=== PATIENT | male | born 1930 | race Two or more races ===

== ENCOUNTER 2017-08-07 01:44 | Inpatient (IN) | payer OTHER ==
[2017-08-07] VITALS (21 sets, daily range): BP systolic 103–139; BP diastolic 53–68; PULSE 100–114; RESP 16–21; TEMP 99.9; Ht 177.8 cm; Wt 100.3 kg
[~2017-08-07] VITALS: Ht 177.8 cm; Wt 100.3 kg
[2017-08-07] MEDS ORDERED: SOD CHLORIDE 0.9% 1,000 ML IV STA (02:09)
[2017-08-07] MEDS ORDERED: morphine 4 MG/ML VIAL IV STA (02:09)
[2017-08-07] MEDS ORDERED: ONDANSETRON 4 MG INJ IV STA (02:09)
--- NOTE | 2017-08-07 02:46 | ERD ---
ER Documentation Chief Complaint Chief Complaint RLQ AP radiates to midline x 2 days, +constipation, + nausea HPI 86-year-old man complains of abdominal pain beginning yesterday, he states the pain began in the mid abdomen and radiated down to the right lower quadrant and is now on both sides of the lower abdomen. He has had multiple episodes of nausea and vomiting, states his emesis is clear nonbloody nonbilious. He has anorexia and tactile fevers. Last meal was around 8 PM about 5-6 hours prior to arrival. Patient denies chest pain or shortness of breath, no headache or blurry vision, no hematuria, no complaints of diarrhea. Patient denies history of abdominal surgery. ROS All systems reviewed and are negative except as per history of present illness. Allergies Allergies: Coded Allergies: Sulfa (Sulfonamide Antibiotics) (Verified Allergy, Unknown, 08/07/17) PMhx/Soc Hypertension, diabetes mellitus, prior NV, CAD, pacemaker History of Surgery: Yes (pacemaker, bladder CA growth removed) Anesthesia Reaction: No Hx Neurological Disorder: No Hx Respiratory Disorders: No Hx Cardiac Disorders: Yes (pacemaker, HTN) Hx Psychiatric Problems: No Hx Miscellaneous Medical Probl: Yes (DM) Hx Alcohol Use: Yes (very little) Hx Substance Use: No Hx Tobacco Use: No Smoking Status: Never smoker FmHx Family History: No diabetes Physical Exam Vitals Vital Signs Date Time Temp Pulse Resp B/P Pulse Ox O2 Delivery O2 Flow Rate FiO2 08/07/17 02:29 100.1 85 22 167/92 95 Room Air 08/07/17 02:02 99.6 84 20 199/85 95 Physical Exam GENERAL: Well-developed, well-nourished, well-hydrated, in no apparent distress , looks nontoxic in appearance, afebrile HEENT: Moist mucous membranes, pink conjunctiva, no cervical spine tenderness or step-off deformities, no goiter, no jaundice or icterus, extraocular movements intact without pain. No submandibular induration, and no pharyngeal erythema NEURO: Alert and oriented 3, cranial nerves II through XII intact bilaterally, pupils equal round reactive to light, no focal deficits or facial asymmetry, sensation intact distally Strength 5/5 in upper and lower extremities bilaterally CARDIAC: Regular rate and rhythm, no murmurs rubs or gallops LUNGS: Clear bilaterally no wheezing crackles or stridor ABDOMEN: Diffuse abdominal tenderness especially on the right lower quadrant and left lower quadrants, voluntary guarding, no rigidity SKIN: Warm and dry to touch, no abrasions, contusions, or hematomas, no lacerations, no ecchymosis, no target lesions, and without ulcers EXTREMITIES: No clubbing cyanosis or edema, calves are bilaterally symmetrical, no Homans sign, no popliteal cord sign. Distal pulses equal and bilateral PSYCH: Normal affect without agitation or irritability Result Diagram: 08/07/17 0215 Results 24 hrs Laboratory Tests Test 08/07/17 01:49 08/07/17 02:15 Bedside Glucose 177mg/dL White Blood Count 11.810^3/ul Red Blood Count 4.0310^6/ul Hemoglobin 12.6g/dl Hematocrit 37.0% Mean Corpuscular Volume 91.8fl Mean Corpuscular Hemoglobin 31.3pg Mean Corpuscular Hemoglobin Concent 34.1g/dl Red Cell Distribution Width 14.8% Platelet Count 56670^3/UL Mean Platelet Volume 13.0fl Neutrophils % 83.3% Lymphocytes % 9.2% Monocytes % 6.4% Eosinophils % 0.3% Basophils % 0.2% Nucleated Red Blood Cells % 0.0/100WBC Neutrophils # 9.810^3/ul Lymphocytes # 1.110^3/ul Monocytes # 0.810^3/ul Eosinophils # 0.010^3/ul Basophils # 0.010^3/ul Nucleated Red Blood Cells # 0.010^3/ul Prothrombin Time 15.0Sec Prothrombin Time Ratio 1.2 INR International Normalized Ratio 1.17 Current Medications Medications (Trade) Dose Ordered Sig/Lynn Route PRN Reason Start Time Stop Time Status Last Admin Dose Admin Sodium Chloride (NS) 1,000 ml @ 1,000 mls/hr Q1H STAT IV 08/07/17 02:09 08/07/17 03:08 DC 08/07/17 02:27 Morphine Sulfate (morphine) 4 mg ONCE STAT IV 08/07/17 02:09 08/07/17 02:17 DC 08/07/17 02:27 Ondansetron HCl (Zofran Inj) 4 mg ONCE STAT IV 08/07/17 02:09 08/07/17 02:17 DC 08/07/17 02:27 Hydromorphone HCl 1 mg 1 mg ONCE STAT IV 08/07/17 03:15 08/07/17 03:18 DC 08/07/17 03:20 Piperacillin Sod/ Tazobactam Sod (Zosyn 3.375gm/ 50 ml (Pmx)) 50 ml @ 100 mls/hr ONCE ONCE IV 08/07/17 03:30 08/07/17 03:59 Procedures/MDM IV line was established patient was placed on captain fishing vessel rhythm strip revealed a sinus rhythm at about 90 bpm with upright P and T waves. Patient was afebrile I administered 1 L normal saline intravenously, morphine 4 mg IV, Zofran 4 mg IV. EKG performed, read by me: 93 bpm, normal sinus rhythm, normal axis, no acute ST segment changes, narrow QRS complex, with good R-wave progression in precordial leads. CT scan of the abdomen and pelvis was performed radiologist read as acute appendicitis with periappendiceal inflammatory changes. Gallstone also noted. CBC and electrolytes were unremarkable, liver function tests were normal, troponin was negative, coagulation profile was normal. I obtained emergent surgical consultation with Dr. Posadas, surgeon publication manager, we discussed the patient's signs, symptoms, and CT scan findings. He agreed to see the patient immediately for emergent OR intervention. Patient will be admitted to [facility] for continued management. Departure Diagnosis: Primary Impression: Acute appendicitis Condition: DOROTA Briones MD Aug 07, 2017 02:46
[2017-08-07 03:02] LABS: BASOPHILS % 0.2 % (0.0-2.0); EOSINOPHILS % 0.3 % (0.0-7.0); HEMOGLOBIN 12.6 g/dl (14.0-18.0); LYMPHOCYTES # 1.1 10^3/ul (0.8-2.9); LYMPHOCYTES % 9.2 % (15.0-51.0); MEAN CORPUSCULAR HEMOGLOBIN 31.3 pg (29.0-33.0); MEAN CORPUSCULAR HGB CONC 34.1 g/dl (32.0-37.0); MEAN CORPUSCULAR VOLUME 91.8 fl (82.0-101.0); MONOCYTE # 0.8 10^3/ul (0.3-0.9); MONOCYTES % 6.4 % (0.0-11.0); NEUTROPHIL # 9.8 10^3/ul (1.6-7.5); NEUTROPHILS % 83.3 % (39.0-77.0); PLATELET COUNT 128 10^3/UL (140-415); RED BLOOD COUNT 4.03 10^6/ul (4.70-6.10); RED CELL DISTRIBUTION WIDTH 14.8 % (11.5-14.5); WHITE BLOOD COUNT 11.8 10^3/ul (4.8-10.8)
[2017-08-07 03:14] LABS: ALANINE AMINOTRANSFERASE 28 IU/L (13-69); ALBUMIN 4.3 g/dl (3.3-4.9); ALKALINE PHOSPHATASE 79 IU/L (42-121); ANION GAP 20 (8-16); ASPARTATE AMINO TRANSFERASE 24 IU/L (15-46); BILIRUBIN,INDIRECT 0.6 mg/dl (0-1.1); BILIRUBIN,TOTAL 0.6 mg/dl (0.2-1.3); BLOOD UREA NITROGEN 43 mg/dl (7-20); CALCIUM 9.2 mg/dl (8.4-10.2); CARBON DIOXIDE 23 mmol/L (21-31); CHLORIDE 99 mmol/L (97-110); CREATININE 1.88 mg/dl (0.61-1.24); GLUCOSE 165 mg/dl (70-220); SODIUM 138 mmol/L (135-144); TOTAL PROTEIN 7.6 g/dl (6.1-8.1)
[2017-08-07] MEDS ORDERED: HYDROmorphONE 1 MG/ML SYG IV STA (03:15)
[2017-08-07 03:17] LABS: INR 1.17; PT RATIO 1.2
[2017-08-07 03:25] LABS: URINE BLOOD (Dip) POC 1+ (NEGATIVE)
--- NOTE | 2017-08-07 03:27 | RADRPT ---
PROCEDURE: CT Abdomen and pelvis without contrast. CLINICAL INDICATION: Abdominal pain. TECHNIQUE: CT scan of the abdomen and pelvis was performed on a multi-detector high-resolution CT scanner. Contiguous axial images were obtained from the lung bases to the ischial tuberosities wit hout intravenous contrast. Coronal and sagittal reformatted images were also obtained. Images were reviewed on the PACS workstation. DICOM images are available. One or more of the following dose reduction techniques were used: - Automated exposure control. - Adjustment of the mA and/or kV according to patient size. - Use of iterative reconstruction technique. Exam CTD/vol = 21.64 mGy. Total exam DLP = 1563.37 mGy-cm. COMPARISON: None. FINDINGS: Evaluation of the lung bases demonstrates mild bibasilar atelectasis. The heart is mildly enlarged. Abdomen: The liver is normal in size. There is no focal mass or dilatation of the biliary tree. T he gallbladder is not distended. There is a gallstone measuring 3.0 x 2.6 cm. The spleen, pancreas a nd bilateral adrenal glands are within normal limits. Bilateral kidneys are normal in size with mul tiple cysts with the largest in the lower pole of the right kidney measuring 8.3 x 7.7 cm. There is a 1 mm calculus within the upper pole of the right kidney. There are punctate 1 mm calculi within th e left kidney. There is no radiopaque ureteral calculus identified. There is no hydronephrosis or hydroureter. There is no retroperitoneal adenopathy. The abdominal aorta is of normal caliber with scattered atherosclerotic calcifications. There is a distended appendix extending inferior to the cecum measuring up to 1.8 cm in diameter wit h mild adjacent stranding. There is no bowel obstruction or free air. There are scattered sigmoid diverticuli without evidence of diverticulitis. There is no ascites. Pelvis: The bladder is unremarkable. The prostate is enlarged indenting upon the base of the bladd er. There are bilateral small inguinal hernias containing fat. There is no significant pelvic sukhjinder opathy or free fluid. Evaluation of the osseous structures demonstrates no suspicious lytic or blastic lesion. IMPRESSION: Acute appendicitis. Scattered sigmoid diverticulitis without evidence of diverticulitis. Cholelithiasis. Bilateral nonobstructing renal calculi. Mild bibasilar atelectasis. Mild cardiomegaly. Vascular calcifications reflective of atherosclerosis. Mildly enlarged prostate indenting upon the base of the bladder. Bilateral small inguinal hernias containing fat. A call report was made to Dr. Mast at 03:25 a.m. .Stanford Taylor MD, MD Date Time Electronically viewed and signed by .Stanford Taylor MD, MD on 08/07/2017 03:26 .T/
[2017-08-07] MEDS ORDERED: SOD CHLORIDE 0.9% 1,000 ML IV SCH (03:29)
[2017-08-07 03:30] LABS: TROPONIN-I < 0.012 ng/ml (0.00-0.12)
[2017-08-07] MEDS ORDERED: KETOROLAC 30 MG INJ IV PRN (03:30)
[2017-08-07] MEDS ORDERED: PIPER-TAZO 3.375 GM IV (PMX) 50 ML IV ONE (03:30)
[2017-08-07] MEDS ORDERED: ONDANSETRON 4 MG INJ IV PRN ×4 (03:30→09:30)
[2017-08-07 04:14] LABS: ADD UMIC YES; UR ASCORBIC ACID NEGATIVE (NEGATIVE); UR BILIRUBIN (Dip) NEGATIVE (NEGATIVE); UR BLOOD (Dip) 1+ mg/dL (NEGATIVE); UR CLARITY CLEAR (CLEAR); UR COLOR YELLOW (YELLOW); UR GLUCOSE (Dip) NEGATIVE (NEGATIVE); UR KETONES (Dip) NEGATIVE (NEGATIVE); UR LEUKOCYTE ESTERASE (Dip) NEGATIVE Leu/ul (NEGATIVE); UR NITRITE (Dip) NEGATIVE (NEGATIVE); UR RBC 1 /HPF (0-5); UR SPECIFIC GRAVITY (Dip) 1.016 (1.003-1.030); UR TOTAL PROTEIN (Dip) 1+ mg/dl (NEGATIVE); UR UROBILINOGEN (Dip) 1+ mg/dL (NEGATIVE)
[2017-08-07] MEDS ORDERED: morphine 4 MG/ML VIAL IV PRN (07:00)
[2017-08-07] MEDS ORDERED: DEXTROSE 5%-0.45% NACL 1,000 ML IV SCH (07:00)
[2017-08-07] MEDS ORDERED: BUPIVACAINE 0.25% (MPF) 30 ML INJ INJ ONE (07:23)
[2017-08-07] MEDS ORDERED: BUPIVACAINE 0.25% (MPF) 30 ML INJ ONE (07:36)
[2017-08-07] MEDS ORDERED: FENTAnyl 50 MCG/ML VIAL IV PRN ×3 (08:00)
[2017-08-07] MEDS ORDERED: hydrALAzine 20 MG INJ IV PRN (08:00)
[2017-08-07] MEDS ORDERED: MEPERIDINE 25 MG INJ IV PRN (08:00)
[2017-08-07] MEDS ORDERED: morphine (1 MG/ML) 10ML SYRINGE IV PRN ×3 (08:00)
[2017-08-07] MEDS ORDERED: EPHEDrine SULFATE 50 MG/5 ML SYG IV PRN (08:00)
[2017-08-07] MEDS ORDERED: LABETALOL HCL 20MG INJ IV PRN (08:00)
[2017-08-07] MEDS ORDERED: METOCLOPRAMIDE 10 MG INJ IV PRN (08:00)
[2017-08-07] MEDS ORDERED: DEXTROSE 50% 50 ML SYRINGE IV PRN ×2 (08:00)
[2017-08-07] MEDS ORDERED: HYDROmorphONE (0.2 MG/ML) 10ML SYG IV PRN ×2 (08:00)
[2017-08-07] MEDS ORDERED: DIPHENHYDRAMINE 50 MG INJ IV PRN (08:00)
[2017-08-07] MEDS ORDERED: GLUCAGON 1 MG INJ IM PRN (08:00)
[2017-08-07] MEDS ORDERED: GLUCOSE GEL 15 GRAM TUBE BUCCAL PRN (08:00)
[2017-08-07] MEDS ORDERED: GLUCOSE GEL 15 GRAM TUBE PO PRN ×2 (08:00)
--- NOTE | 2017-08-07 08:05 | CONS ---
Date/Time of Note Date/Time of Note DATE: 08/07/17 TIME: 08:01 Assessment/Plan Assessment/Plan Additional Assessment/Plan Acute appendicitis Plan: Laparoscopic appendectomy possible open. I have discussed the procedure, outcomes, expectations, alternatives and risks in detail with the patient who has an excellent understanding of the nature of his situation and agrees to the proposed plan of therapy as outlined. Consultation Date/Type/Reason Admit Date/Time Aug 07, 2017 at 03:56 Date of Consultation: Aug 07, 2017 Reason for Consultation Acute appendicitis Hx of Present Illness The patient is a remarkably healthy 86-year-old gentleman who presents to the emergency room with a 2 day history of abdominal pain which intensified in severity than localized to the right lower quadrant. In the emergency room he was noted to have a tender right lower quadrant, and elevated white blood cell count, and a CT compatible with acute appendicitis. The patient is admitted and surgical consultation was requested in that regard. Constitutional: no complaints Eyes: no complaints ENT: no complaints Respiratory: no complaints Cardiovascular: no complaints Gastrointestinal: pain (Right lower quadrant, as in the HPI) Genitourinary: no complaints Musculoskeletal: no complaints Skin: no complaints Neurologic: no complaints Endocrine: no complaints Lymphatic: no complaints Psychological: no complaints Immunologic: no complaints Past Medical History Medical History: other (Bladder cancer) Past Surgical History Past Surgical Hx: other (Cystoscopic resection of bladder cancer) Family History Significant Family History: no pertinent family hx Social History Alcohol Use: sober Smoking Status: Never smoker Exam/Review of Systems Vital Signs Vitals Vital Signs Date Time Temp Pulse Resp B/P Pulse Ox O2 Delivery O2 Flow Rate FiO2 08/07/17 07:48 100.5 105 16 121/59 94 08/07/17 06:22 3.0 08/07/17 06:00 Nasal Cannula Exam Constitutional: alert, oriented Psych: no complaints Head: normocephalic Eyes: nl conjunctiva Neck: supple Respiratory: clear to auscultation Cardiovascular: regular rate and rhythm Gastrointestinal: tender (Tender right lower quadrant with guarding and rebound ) Genitourinary - Male: nl penis, other (There is a Youngblood catheter in place) Musculoskeletal: nl extremities to inspection Extremities: normal pulses Neurological: DIE FILER II-XII intact Skin: nl turgor Lymph: nl lymph nodes Results Result Diagram: 11/26/17 0215 11/26/17 0215 Results 24 hrs Laboratory Tests Test 08/07/17 01:49 08/07/17 02:15 08/07/17 03:00 08/07/17 03:23 Bedside Glucose 177 White Blood Count 11.8 H Red Blood Count 4.03 L Hemoglobin 12.6 L Hematocrit 37.0 L Mean Corpuscular Volume 91.8 Mean Corpuscular Hemoglobin 31.3 Mean Corpuscular Hemoglobin Concent 34.1 Red Cell Distribution Width 14.8 H Platelet Count 128 L Mean Platelet Volume 13.0 H Neutrophils % 83.3 H Lymphocytes % 9.2 L Monocytes % 6.4 Eosinophils % 0.3 Basophils % 0.2 Nucleated Red Blood Cells % 0.0 Neutrophils # 9.8 H Lymphocytes # 1.1 Monocytes # 0.8 Eosinophils # 0.0 Basophils # 0.0 Nucleated Red Blood Cells # 0.0 Prothrombin Time 15.0 H Prothrombin Time Ratio 1.2 INR International Normalized Ratio 1.17 Sodium Level 138 Potassium Level 4.0 Chloride Level 99 Carbon Dioxide Level 23 Anion Gap 20 H Blood Urea Nitrogen 43 H Creatinine 1.88 H Glucose Level 165 Calcium Level 9.2 Total Bilirubin 0.6 Direct Bilirubin 0.00 Indirect Bilirubin 0.6 Aspartate Amino Transf (AST/SGOT) 24 Alanine Aminotransferase (ALT/SGPT) 28 Alkaline Phosphatase 79 Troponin I < 0.012 Total Protein 7.6 Albumin 4.3 Globulin 3.30 H Albumin/Globulin Ratio 1.30 Lipase 54 Urine Color YELLOW Urine Clarity CLEAR Urine pH 5.0 Urine Specific [place] 1.016 Urine Ketones NEGATIVE Urine Nitrite NEGATIVE Urine Bilirubin NEGATIVE Urine Urobilinogen 1+ H Urine Leukocyte Esterase NEGATIVE Urine Microscopic RBC 1 Urine Microscopic WBC 1 Urine Hemoglobin 1+ H Urine Glucose NEGATIVE Urine Total Protein 1+ H Bedside Urine pH (LAB) 5.5 Bedside Urine Protein (LAB) 1+ H Bedside Urine Glucose (UA) Negative Bedside Urine Ketones (LAB) Negative Bedside Urine Blood 1+ H Bedside Urine Nitrite (LAB) Negative Bedside Urine Leukocyte Esterase (L Negative Test 08/07/17 05:47 08/07/17 07:34 Bedside Glucose 164 163 Medications Medications Current Medications Sodium Chloride 1,000 ml @ 125 mls/hr Q8H IV ; Start 08/07/17 at 03:29; Stop 08/07/17 at 11:28 Dextrose/Sodium Chloride (D5-1/2ns) 1,000 ml @ 100 mls/hr Q10H IV ; Start at 07:00 Morphine Sulfate (morphine) 3 mg Q4H PRN IV PAIN; Start 08/07/17 at 07:00 Ondansetron HCl (Zofran Inj) 4 mg Q6H PRN IV NAUSEA AND/OR VOMITING; Start at 07:00 Diagnostic Test (Pha) (Accu-Chek) 1 ea Q4 XX ; Start 08/07/17 at 09:00 Diagnostic Test (Pha) (Accu-Chek) 1 ea 02 XX ; Start 08/08/17 at 02:00 Insulin Aspart (Novolog Insulin Pen) NOVOLOG *MILD* ALGORI... Q4 SC ; Start at 09:00 Miscellaneous Information 1 ea NOTE XX ; Start 08/07/17 at 08:00 Glucose (Glutose) 15 gm Q15M PRN PO DECREASED GLUCOSE; Start 08/07/17 at 08:00 Glucose (Glutose) 22.5 gm Q15M PRN PO DECREASED GLUCOSE; Start 08/07/17 at 08: 00 Dextrose (D50w Syringe) 25 ml Q15M PRN IV DECREASED GLUCOSE; Start 08/07/17 at 08:00 Dextrose (D50w Syringe) 50 ml Q15M PRN IV DECREASED GLUCOSE; Start 08/07/17 at 08:00 Glucagon (Glucagen) 1 mg Q15M PRN IM DECREASED GLUCOSE; Start 08/07/17 at 08: 00 Glucose (Glutose) 15 gm Q15M PRN BUCCAL DECREASED GLUCOSE; Start 08/07/17 at 08:00 AMY DANIELS MD Aug 07, 2017 08:05
[2017-08-07] MEDS ORDERED: ROCURONIUM 50 MG INJ ONE (08:08)
[2017-08-07] MEDS ORDERED: PROPOFOL 20 ML ONE (08:08)
[2017-08-07] MEDS ORDERED: CEFAZOLIN 1 GM INJ ONE (08:08)
[2017-08-07] MEDS ORDERED: FENTAnyl 50 MCG/ML VIAL ONE (08:08)
[2017-08-07] MEDS ORDERED: ROPIVACAINE 0.5 % 30 ML VIAL ONE (08:14)
[2017-08-07] MEDS ORDERED: PHENYLephrine (100 MCG/ML) 5ML SYG ONE (08:21)
[2017-08-07] MEDS ORDERED: SUGAMMADEX SODIUM 200 MG/2 ML VIAL IV ONE (08:35)
[2017-08-07] MEDS ORDERED: METOCLOPRAMIDE 10 MG INJ ONE (08:35)
[2017-08-07] MEDS ORDERED: ONDANSETRON 4 MG INJ ONE (08:35)
[2017-08-07] MEDS ORDERED: DEXAMETHASONE 4 MG/ML 1 ML INJ ONE (08:35)
[2017-08-07] MEDS ORDERED: ACETAMINOPHEN 1000MG/100ML IV 100 ML ONE (08:37)
[2017-08-07] MEDS: ACCU-CHEK XX SCH ×4 (09:00→20:07)
[2017-08-07] MEDS: INSULIN ASPART [NOVOLOG] 3 ML PEN SC SCH ×4 (09:00→20:07)
--- NOTE | 2017-08-07 09:01 | OPR ---
Date/Time of Note Date/Time of Note DATE: 08/07/17 TIME: 08:57 Operative Report Procedure Date: Aug 07, 2017 Preoperative Diagnosis Acute appendicitis Postoperative Diagnosis Gangrenous appendicitis with localized peritonitis Operation/Procedure Performed Laparoscopic appendectomy Surgeon Volodymyr Daniels MD Casing Splitter None Anesthesia Type: general Anesthesiologist: DARBY BARNEY MD Estimated Blood Loss: 0 - 10 ml's Transfusion none Specimen Appendix Grafts/Implants none Tubes/Drains None Complications none Pt Condition Post Procedure: stable Disposition: PACU Indications Peritonitis Procedure Description After satisfactory general endotracheal anesthesia was achieved, the abdomen was prepped and draped in the usual fashion. The abdomen was insufflated with carbon dioxide through an umbilical Veress needle to 15 mmHg pressure. The Veress needle was removed and the umbilical incision extended to 5 mm through which a 5 mm trocar was placed. A 5 mm 0 lens was placed. Laparoscopy showed pus in the right abdomen. Under direct visualization, a 5 mm suprapubic trocar was placed. The camera was then placed into the suprapubic port the cecum mobilized. The cecum was located in the right lower quadrant. Its appendix was gangrenous with localized peritonitis. Under direct visualization a 12 mm trocar was placed midway between the umbilicus and the xiphoid. A window was made in the mesoappendix through which a vascular stapler was placed across the base of the cecum, closed and fired disconnecting the appendix from the cecum. A second firing of the vascular linear stapler across the mesoappendix fully freed the appendix which was placed intact into an Endo Catch removed via the epigastric route. Hemostasis of the staple lines was total. The abdomen was irrigated with a liter of saline until clear. The fascial defect of the 12 mm port site was closed with a #1 Vicryl placed with a laparoscopic closure device. The abdomen was then desufflated and the trochars were removed. The puncture sites were infiltrated with 30 cc of 0.25% plain Marcaine and closed with sherlyn. Sponge and needle counts were reported as correct 2. VOLODYMYR DANIELS MD Aug 07, 2017 09:01
[2017-08-07] MEDS ORDERED: morphine 2 MG INJ IV PRN (09:30)
[2017-08-07] MEDS ORDERED: OXYCODONE/ACETAMINOPHEN (5/325) TAB PO PRN (09:30)
--- NOTE | 2017-08-07 09:39 | HP ---
Date/Time of Note Date/Time of Note DATE: 08/07/17 TIME: 09:35 Assessment/Plan Lines/Catheters IV [facility] (from [facility]): Peripheral IV Assessment/Plan Assessment/Plan 1. Acute appendicitis -Status post laparoscopic appendectomy with a finding of Gangrenous appendicitis with localized peritonitis -Follow-up surgery recommendations 2. Hypertensive urgency, blood pressure better controlled now Continue antihypertensives adjustment as needed 3. Type 1 diabetes Continue insulin with adjustment as needed 4. History of dyslipidemia Continue medications 5. Presumed CKD Follow-up kidney function closely We will give IV fluid We will obtain renal ultrasound and they will consider nephrology consult 6. History of essential tremor -Continue supportive care HPI/ROS Admit Date/Time Admit Date/Time Aug 07, 2017 at 03:56 Hx of Present Illness This is an 86-year-old male with a history of hypertension, insulin-dependent diabetes, dyslipidemia, bladder cancer status post surgery in 1987 who presented to the ER complaining of abdominal pain. Pain started today and it was of sudden onset, mainly localized in the right lower quadrant area. Imaging in the ER showed acute appendicitis. ROS Eyes: no complaints ENT: no complaints Respiratory: no complaints Cardiovascular: no complaints Gastrointestinal: pain (Right lower quadrant, as in the HPI) Genitourinary: no complaints Musculoskeletal: no complaints Skin: no complaints Neurologic: no complaints Lymphatic: no complaints Psychological: no complaints Immunologic: no complaints PMH/Family/Social Past Medical History Medical History: other (Bladder cancer) Past Surgical History Past Surgical Hx: other (Cystoscopic resection of bladder cancer) Social History Alcohol Use: sober Smoking Status: Never smoker Exam/Review of Systems Vital Signs Vitals Vital Signs Date Time Temp Pulse Resp B/P Pulse Ox O2 Delivery O2 Flow Rate FiO2 08/07/17 09:16 102 20 113/58 94 Nasal Cannula 08/07/17 09:13 98.2 08/07/17 06:22 3.0 Exam Constitutional: alert, oriented, well developed Head: atraumatic, normocephalic Eyes: EOMI, PERRL Respiratory: clear to auscultation, normal air movement Cardiovascular: regular rate and rhythm Gastrointestinal: soft, tender Extremities: normal pulses Neurological: other (Bilateral upper extremity tremor) Labs Result Diagram: 08/07/1721408/07/17214 Medications Medications Current Medications Sodium Chloride 1,000 ml @ 125 mls/hr Q8H IV ; Start 08/07/17 at 03:29; Stop 08/07/17 at 11:28 Dextrose/Sodium Chloride (D5-1/2ns) 1,000 ml @ 100 mls/hr Q10H IV ; Start at 07:00 Morphine Sulfate (morphine) 3 mg Q4H PRN IV PAIN; Start 08/07/17 at 07:00 Ondansetron HCl (Zofran Inj) 4 mg Q6H PRN IV NAUSEA AND/OR VOMITING; Start at 07:00 Diagnostic Test (Pha) (Accu-Chek) 1 ea Q4 XX ; Start 08/07/17 at 09:00 Diagnostic Test (Pha) (Accu-Chek) 1 ea 02 XX ; Start 08/08/17 at 02:00 Insulin Aspart (Novolog Insulin Pen) NOVOLOG *MILD* ALGORI... Q4 SC ; Start at 09:00 Miscellaneous Information 1 ea NOTE XX ; Start 08/07/17 at 08:00 Glucose (Glutose) 15 gm Q15M PRN PO DECREASED GLUCOSE; Start 08/07/17 at 08:00 Glucose (Glutose) 22.5 gm Q15M PRN PO DECREASED GLUCOSE; Start 08/07/17 at 08: 00 Dextrose (D50w Syringe) 25 ml Q15M PRN IV DECREASED GLUCOSE; Start 08/07/17 at 08:00 Dextrose (D50w Syringe) 50 ml Q15M PRN IV DECREASED GLUCOSE; Start 08/07/17 at 08:00 Glucagon (Glucagen) 1 mg Q15M PRN IM DECREASED GLUCOSE; Start 08/07/17 at 08: 00 Glucose (Glutose) 15 gm Q15M PRN BUCCAL DECREASED GLUCOSE; Start 08/07/17 at 08:00 Oxycodone/ Acetaminophen (Percocet (5/ 325)) 1 tab Q4H PRN PO MILD PAIN (1-3); Start 08/07/17 at 09:30 Oxycodone/ Acetaminophen (Percocet (5/ 325)) 2 tab Q4H PRN PO MODERATE PAIN (4- 6); Start 08/07/17 at 09:30 Morphine Sulfate (morphine) 2 mg ONCE PRN IV SEVERE PAIN LEVEL 7-10; Start at 09:30; Stop 08/07/17 at 23:00 Ondansetron HCl (Zofran Inj) 4 mg Q6H PRN IV NAUSEA; Start 08/07/17 at 09:30 FRANTZ STEVENSON MD Aug 07, 2017 09:39
[2017-08-07] MEDS: SOD CHLORIDE 0.9% 1,000 ML IV SCH (15:00)
--- NOTE | 2017-08-07 19:54 | PN ---
DATE: SUBJECTIVE: Started on regular diet today. Had appendectomy performed earlier today. Seen by surgery team. Patient is complaining of some mild abdominal burning pain, but otherwise no nausea or vomiting. OBJECTIVE: VITAL SIGNS: Vital signs are stable. GENERAL: Patient is lying in bed, answering questions appropriately. No acute distress. HEENT: Pupils equal, round, reactive to light. Extraocular muscles intact. NECK: Supple. No thyromegaly. LUNGS: Clear to auscultation bilaterally. HEART: S1, S2 heard. No rubs or gallops. ABDOMEN: Soft. Mild tenderness to palpation, right lower quadrant. No rebound or guarding. MUSCULOSKELETAL: No lower extremity edema bilaterally. NEUROLOGIC: No focal deficits. LABORATORY AND DIAGNOSTIC DATA: Sodium 138, potassium 4, chloride 99, CO2 23, BUN 43, creatinine 1.88, glucose 165. LFTs were normal. WBC 11.8, hemoglobin 12.6, hematocrit 37, platelets 128. ASSESSMENT AND PLAN: 1. An 86-year-old male with history of hypertension, insulin- dependent diabetes, high cholesterol, bladder cancer, status post surgery in 1987, who presents with abdominal pain and found to have acute appendicitis, status post appendectomy earlier today. 2. Abdominal pain secondary to appendicitis and status post appendectomy earlier today. Follow up postop recommendations. Continue pain control medications, IV fluids. 3. Renal insufficiency. Could be mild chronic kidney disease versus prerenal. Again, switch IV fluids to normal saline. Monitor BMP in the morning. Monitor urine output. He has Youngblood catheter. 4. Type 1 diabetes. Check A1c. Add sliding scale. 5. High cholesterol. Continue to monitor for now. 6. History of essential tremor. Continue to monitor. 7. Leukocytosis, likely reactive from his appendicitis. Monitor in the morning. If any fevers, consider checking blood and urine cultures. Dictated By: Venu Ferris MD /alee/jaymie /Document#: [id number]
[2017-08-07] MEDS ORDERED: MAGNESIUM HYDROXIDE 30ML CUP PO PRN (20:30)
[2017-08-07] MEDS: SENNA TAB PO SCH (21:13)
[2017-08-08] MEDS: ACCU-CHEK XX SCH ×4 (00:58→08:00)
[2017-08-08] MEDS: INSULIN ASPART [NOVOLOG] 3 ML PEN SC SCH ×6 (00:58→20:11)
[2017-08-08 02:00] VITALS: BP 130/62; RESP 20
[2017-08-08] MEDS: SOD CHLORIDE 0.9% 1,000 ML IV SCH ×3 (05:39→19:39)
[2017-08-08 06:47] LABS: HEMATOCRIT 32.4 % (42.0-52.0); HEMOGLOBIN 10.5 g/dl (14.0-18.0); MEAN CORPUSCULAR HEMOGLOBIN 31.1 pg (29.0-33.0); MEAN CORPUSCULAR VOLUME 95.9 fl (82.0-101.0); RED BLOOD COUNT 3.38 10^6/ul (4.70-6.10); WHITE BLOOD COUNT 9.3 10^3/ul (4.8-10.8)
[2017-08-08 06:48] LABS: ABNORMAL IP MESSAGE 1; BASOPHILS % 0.1 % (0.0-2.0); EOSINOPHILS % 0.4 % (0.0-7.0); LYMPHOCYTES # 0.6 10^3/ul (0.8-2.9); LYMPHOCYTES % 6.2 % (15.0-51.0); MEAN CORPUSCULAR HGB CONC 32.4 g/dl (32.0-37.0); MEAN PLATELET VOLUME 11.1 fl (7.4-10.4); MONOCYTE # 0.5 10^3/ul (0.3-0.9); MONOCYTES % 5.5 % (0.0-11.0); NEUTROPHILS % 86.2 % (39.0-77.0); PLATELET COUNT 115 10^3/UL (140-415); POSITIVE DIFF @See below; RED CELL DISTRIBUTION WIDTH 14.8 % (11.5-14.5)
[2017-08-08 06:58] LABS: CALCIUM 8.3 mg/dl (8.4-10.2); CREATININE 1.63 mg/dl (0.61-1.24)
[2017-08-08 07:29] LABS: MAGNESIUM 1.9 mg/dl (1.7-2.5); PHOSPHORUS 2.8 mg/dl (2.5-4.9)
[2017-08-08 07:31] VITALS: BP 139/65; RESP 17
[2017-08-08] MEDS: SENNA TAB PO SCH ×2 (08:05→20:09)
[2017-08-08 09:26] LABS: EOSINOPHILS % (M) 2 % (0-7); GIANT THROMBO% (M) 1 % (0-0); MONOCYTES % (M) 7 % (0-11); POIKILOCYTOSIS 1+ (0-0); POLYCHROMASIA 3+ (0-0)
[2017-08-08] MEDS: OXYCODONE/ACETAMINOPHEN (5/325) TAB PO PRN ×2 (10:34→14:43)
--- NOTE | 2017-08-08 10:42 | PN ---
Date/Time of Note Date/Time of Note DATE: 08/08/17 TIME: 10:41 Assessment/Plan Lines/Catheters IV C[facility] Type (from [facility]): Peripheral IV Assessment/Plan Chief Complaint/Hosp Course The patient is a remarkably healthy 86-year-old gentleman who presents to the emergency room with a 2 day history of abdominal pain which intensified in severity than localized to the right lower quadrant. In the emergency room he was noted to have a tender right lower quadrant, and elevated white blood cell count, and a CT compatible with acute appendicitis. The patient is admitted and surgical consultation was requested in that regard. Problems: Assessment/Plan Excellent postoperative recovery Surgically cleared for discharge when medically stable Youngblood catheter should be removed Subjective 24 Hr Interval Summary Postoperative day #1 Markedly symptomatically improved Exam/Review of Systems Vital Signs Vitals Vital Signs Date Time Temp Pulse Resp B/P Pulse Ox O2 Delivery O2 Flow Rate FiO2 08/08/17 08:16 98.9 08/08/17 07:31 89 17 139/65 90 08/07/17 10:29 Nasal Cannula 08/07/17 06:22 3.0 Intake and Output 08/07/17 08/07/17 08/08/17 15:00 23:00 07:00 Intake Total 900 ml 1800 ml 1510 ml Output Total 260 ml 550 ml 700 ml Balance 640 ml 1250 ml 810 ml Results Result Diagram: 08/08/17 0424 08/08/17 0424 AMY DANIELS MD Aug 08, 2017 10:42
--- NOTE | 2017-08-08 11:15 | PN ---
Date/Time of Note Date/Time of Note DATE: 08/08/17 TIME: 11:15 Assessment/Plan VTE Prophylaxis VTE Prophylaxis Intervention: ambulation Lines/Catheters IV Catheter Type (from [facility]): Peripheral IV Urinary Cath still in place: No Assessment/Plan Chief Complaint/Hosp Course 86-year-old male presented with abdominal pain and found to have acute appendicitis 1. Acute appendicitis , status post laparoscopic appendectomy -Continue pain control medications 2. Acute kidney injury, likely prerenal. Baseline creatinine unknown. Renal function stabilizing. -We will give fluids. Will repeat renal function in a.m. 3. Reported Type 1 diabetes. A1c 5.9. -Continue insulin in-house. 4. Hx bladder cancer, status post surgery in 1987 5. Obesity. -Lifestyle modification/weight reduction advised. Prophylaxis: Ambulation. Plan: Follow-up with a.m. labs to assess renal function. If stable, discharge planning in a.m. Patient was seen in collaboration with . Problems: Subjective 24 Hr Interval Summary Free Text/Dictation Patient complains of abdominal pain. He is tolerating diet. Remains afebrile. Exam/Review of Systems Vital Signs Vitals Vital Signs Date Time Temp Pulse Resp B/P Pulse Ox O2 Delivery O2 Flow Rate FiO2 08/08/17 08:16 98.9 08/08/17 07:31 89 17 139/65 90 08/07/17 10:29 Nasal Cannula 08/07/17 06:22 3.0 Intake and Output 08/07/17 08/07/17 08/08/17 15:00 23:00 07:00 Intake Total 900 ml 1800 ml 1510 ml Output Total 260 ml 550 ml 700 ml Balance 640 ml 1250 ml 810 ml Exam General: Well developed,adequately built, not in any acute distress . HEENT: Normocephalic, Atraumatic, No laceration or hematoma; Eyes: PEERL, Conjunctiva clear, Anicteric sclera Neck: Supple without any lymphadenopathy, nontender, no JVD, no carotid bruits, trachea midline, no thyromegaly Cardiac: S1, S2 auscultated, regular rhythm and rate, no mumurs or gallop Pulmonary: Normal respiratory effort. Chest clear to auscultation bilaterally, no adventitious breath sounds GI: Laparoscopic abdominal incision site intact. Mild tenderness to surgical site. Otherwise, abdomen normal to inspection. Soft, non- distended, no masses , no rebound tenderness or guarding. Bowel sounds active on all four quadrants Genitourinary: Deferred Extremities: No cyanosis, clubbing, or edema. Pulses [2+] bilaterally. Full ROM on all four extremities. No focal weakness appreciated. Neurologic: Alert to person, place, time, and situation. Affect appropriate, intact sensation. Skin: Clean,dry, and intact. No ecchymosis, no rashes, or lesions Results Result Diagram: 08/08/17 0424 08/08/17 0424 Results 24 hrs Laboratory Tests Test 08/07/17 11:50 08/07/17 16:48 08/07/17 20:03 08/08/17 00:30 Bedside Glucose 180 175 169 140 Test 08/08/17 04:24 08/08/17 04:43 08/08/17 08:02 White Blood Count 9.3 # Red Blood Count 3.38 L Hemoglobin 10.5 L Hematocrit 32.4 L Mean Corpuscular Volume 95.9 Mean Corpuscular Hemoglobin 31.1 Mean Corpuscular Hemoglobin Concent 32.4 Red Cell Distribution Width 14.8 H Platelet Count 115 L Mean Platelet Volume 11.1 H Neutrophils % 86.2 H Segmented Neutrophils % (Manual) 51 Band Neutrophils % (Manual) 29 H Lymphocytes % 6.2 L Lymphocytes % (Manual) 11 L Monocytes % 5.5 Monocytes % (Manual) 7 Eosinophils % 0.4 Eosinophils % (Manual) 2 Basophils % 0.1 Nucleated Red Blood Cells % 0.0 Neutrophils # 8.0 H Neutrophils # (Manual) 5.0 Band Neutrophils # 2.6 H Absolute Lymphocytes (Manual) 1.0 Lymphocytes # 0.6 L Monocytes # 0.5 Absolute Monocytes (Manual) 0.6 Eosinophils # 0.0 Basophils # 0.0 Nucleated Red Blood Cells # 0.0 Giant Platelets 1 H Polychromasia 3+ Poikilocytosis 1+ Sodium Level 139 Potassium Level 4.0 Chloride Level 106 Carbon Dioxide Level 23 Anion Gap 14 Blood Urea Nitrogen 36 H Creatinine 1.63 H Glucose Level 133 Calcium Level 8.3 L Phosphorus Level 2.8 Magnesium Level 1.9 Bedside Glucose 138 154 Medications Medications Current Medications Morphine Sulfate (morphine) 3 mg Q4H PRN IV PAIN; Start 08/07/17 at 07:00 Diagnostic Test (Pha) (Accu-Chek) 1 ea 02 XX ; Start 08/08/17 at 02:00 Miscellaneous Information 1 ea NOTE XX ; Start 08/07/17 at 08:00 Glucose (Glutose) 15 gm Q15M PRN PO DECREASED GLUCOSE; Start 08/07/17 at 08:00 Glucose (Glutose) 22.5 gm Q15M PRN PO DECREASED GLUCOSE; Start 08/07/17 at 08: 00 Dextrose (D50w Syringe) 25 ml Q15M PRN IV DECREASED GLUCOSE; Start 08/07/17 at 08:00 Dextrose (D50w Syringe) 50 ml Q15M PRN IV DECREASED GLUCOSE; Start 08/07/17 at 08:00 Glucagon (Glucagen) 1 mg Q15M PRN IM DECREASED GLUCOSE; Start 08/07/17 at 08: 00 Glucose (Glutose) 15 gm Q15M PRN BUCCAL DECREASED GLUCOSE; Start 08/07/17 at 08:00 Oxycodone/ Acetaminophen (Percocet (5/ 325)) 1 tab Q4H PRN PO MILD PAIN (1-3) Last administered on 08/07/17 18:13; Admin Dose 1 TAB; Start 08/07/17 at 09: 30 Oxycodone/ Acetaminophen (Percocet (5/ 325)) 2 tab Q4H PRN PO MODERATE PAIN (4- 6) Last administered on 08/08/17 10:34; Admin Dose 2 TAB; Start 08/07/17 at 09:30 Ondansetron HCl (Zofran Inj) 4 mg Q6H PRN IV NAUSEA; Start 08/07/17 at 09:30 Clonidine 0.1 mg 0.1 mg Q4H PRN PO sbp > 160; Start 08/07/17 at 10:00 Sodium Chloride (NS) 1,000 ml @ 75 mls/hr [id number] IV Last administered on 10:31; Admin Dose 75 MLS/HR; Start 08/07/17 at 14:00 Senna (Senokot) 2 tab BID PO Last administered on 08/08/17 08:05; Admin Dose 2 TAB; Start 08/07/17 at 21:00 Magnesium Hydroxide 30 ml 30 ml QHS PRN PO CONSTIPATION; Start 08/07/17 at 20: 30 Sodium Chloride (NS) 500 ml @ 500 mls/hr Q1H ONCE IV ; Start 08/08/17 at 11:30 ; Stop 08/08/17 at 12:29 LORI PEARL NP Aug 08, 2017 11:15
[2017-08-08] MEDS ORDERED: SOD CHLORIDE 0.9% 500 ML IV ONE (11:30)
[2017-08-08 14:00] VITALS: BP 117/58; RESP 19
[2017-08-08 20:06] VITALS: BP 152/67; RESP 18
[2017-08-09] MEDS: ACCU-CHEK XX SCH (02:00)
[2017-08-09 02:37] VITALS: BP 176/82; RESP 21
[2017-08-09 04:56] VITALS: BP 113/57
[2017-08-09 06:24] LABS: CALCIUM 8.8 mg/dl (8.4-10.2); CREATININE 1.33 mg/dl (0.61-1.24); POTASSIUM 3.9 mmol/L (3.5-5.1)
[2017-08-09 07:15] VITALS: BP 123/71; RESP 20
[2017-08-09] MEDS: SENNA TAB PO SCH (08:24)
[2017-08-09] MEDS: INSULIN ASPART [NOVOLOG] 3 ML PEN SC SCH ×2 (08:25→11:58)
[2017-08-09 08:29] VITALS: PULSE 108
[2017-08-09 10:35] VITALS: PULSE 89
--- NOTE | 2017-08-09 11:44 | PDOCDIS ---
Discharge Instructions CONDITION Patient Condition: Stable HOME CARE INSTRUCTIONS: Special Diet: 1800 ADA FOLLOW UP/APPOINTMENTS Follow-up Plan Follow-up with in [address] [facility] [address] [place] [id number] Office 1.Follow up with primary care physician in 1 week If you don't have one please let someone know, we can give you resources that may help you pick one. You may also call your insurance company to assign one to you. Review your medication list with your nurse before leaving and if you need new prescriptions please let your nurse know. I may have made changes to your home medications or given you new prescriptions, please let your primary doctor know as well. Stay compliant with your medications and report any side effects to your PCP or pharmacist. Return to the ER if you have any concerns and cannot reach your doctors or call your insurance company, they usually have a nurse that can help you. 2. Call 911 or go to the nearest emergency room if experiencing loss of consciousness, dizziness, chest pain, shortness of breath, vomiting/abdominal pain, speech difficulties, motor weakness or any unusual symptoms. Post operative Instructions *Do not lift anything more than 25 pounds for 6 to 8 weeks *Do not swim or take hot tub bath for 2weeks *Remove dressing and May shower-Use mild soap around site and pat dry *If you notice any oozing, bleeding or other drainage or having fever or chills from site please contact Surgeon's office-If unable to get office, you may go to nearest emergency room LORI PEARL NP Aug 09, 2017 11:44
[2017-08-09] MEDS ORDERED: DOCU-144 PO (11:46)
[2017-08-09] MEDS ORDERED: HYDR-906 PO (11:46)
[2017-08-09] MEDS ORDERED: CEPH-443 PO (11:47)
--- NOTE | 2017-08-09 11:49 | DS ---
Date/Time of Note Date/Time of Note DATE: 08/09/17 TIME: 11:49 Discharge Summary Admission/Discharge Info Admit Date/Time Aug 07, 2017 at 03:56 Discharge Date/Time Discharge Diagnosis 1. Acute gangrenous appendicitis with localized peritonitis- status post laparoscopic appendectomy 2. Acute kidney injury, likely prerenal. Baseline creatinine unknown. Renal function stabilized 3. Reported Type 1 diabetes. A1c 5.9. 4. Hx bladder cancer, status post surgery in 1987 5. Obesity. Patient Condition: Stable Consults , surgery Procedures Laparoscopic appendectomy. Hospital Course This is a 86-year-old male with a past medical history of reported type 1 diabetes, bladder cancer with status post surgery 1987, who was admitted with abdominal pain and found to have acute appendicitis. Patient had surgery consult and he had laparoscopic appendectomy. Postoperative diagnoses include gangrenous appendicitis with localized peritonitis. Patient had uneventful postoperative course. He was noted with mild acute kidney injury possibly prerenal. This was treated with IV fluids with stabilization of renal function. Patient was continued on insulin in- house. His A1c was 5.9. He was also counseled on weight reduction and lifestyle modification for underlying obesity. At this time, patient is feeling back to his baseline. He is tolerating diet and activities. His abdominal pain is resolved and abdominal exam benign. Leukocytosis resolved. There is no fever or chills. There is no further inpatient workup indicated and patient is discharged from surgery colleagues. Patient to follow-up with surgery as outpatient. Upon discharge, he was also provided with antibiotics prescription as there is documented peritonitis from operative notes. Disposition: Home. Approximately 60 minutes was spent in coordinating the discharge on this patient. Patient verbalized discharge instructions. Patient was seen in collaboration with Dr.Abe Rasmussen [facility] Active Scripts Cephalexin* (Keflex*) 500 Mg Capsule, 500 MG PO QID, #28 CAP Prov:PEARL,LORI V. DEVELOPMENT AND PLANNING ENGINEER 08/09/17 Docusate Sodium* (Colace*) 100 Mg Capsule, 100 MG PO BID, #60 CAP Prov:PEARL,LORI V. DEVELOPMENT AND PLANNING ENGINEER 08/09/17 Hydrocodone/Acetaminophen ([place] 5-325 Tablet) 1 Each Tablet, 1 EACH PO Q4 for PAIN, #20 TAB Prov:PEARL,LORI V. DEVELOPMENT AND PLANNING ENGINEER 08/09/17 Follow-up Plan Follow-up with in 1 week. [address] [facility] [address] [place] [address] Office 1.Follow up with primary care physician in 1 week If you don't have one please let someone know, we can give you resources that may help you pick one. You may also call your insurance company to assign one to you. Review your medication list with your nurse before leaving and if you need new prescriptions please let your nurse know. I may have made changes to your home medications or given you new prescriptions, please let your primary doctor know as well. Stay compliant with your medications and report any side effects to your PCP or pharmacist. Return to the ER if you have any concerns and cannot reach your doctors or call your insurance company, they usually have a nurse that can help you. 2. Call 911 or go to the nearest emergency room if experiencing loss of consciousness, dizziness, chest pain, shortness of breath, vomiting/abdominal pain, speech difficulties, motor weakness or any unusual symptoms. Post operative Instructions *Do not lift anything more than 25 pounds for 6 to 8 weeks *Do not swim or take hot tub bath for 2weeks *Remove dressing and May shower-Use mild soap around site and pat dry *If you notice any oozing, bleeding or other drainage or having fever or chills from site please contact Surgeon's office-If unable to get office, you may go to nearest emergency room Primary Care Provider Not On Staff Doctor Pending Labs Laboratory Tests Test 08/08/17 11:53 08/08/17 17:05 08/08/17 20:08 08/09/17 02:10 Bedside Glucose 189mg/dL (70-220) 206mg/dL (70-220) 183mg/dL (70-220) 159mg/dL (70-220) Test 08/09/17 04:20 08/09/17 08:11 Sodium Level 138mmol/L (135-144) Potassium Level 3.9mmol/L (3.5-5.1) Chloride Level 104mmol/L (97-110) Carbon Dioxide Level 21mmol/L (21-31) Anion Gap 17 (8-16) Blood Urea Nitrogen 28mg/dl (7-20) Creatinine 1.33mg/dl (0.61-1.24) Glucose Level 190mg/dl (70-220) Calcium Level 8.8mg/dl (8.4-10.2) Bedside Glucose 180mg/dL (70-220) LORI PEARL V. DEVELOPMENT [employer]ING ENGINEER Aug 09, 2017 11:49
[2017-08-09] MEDS ORDERED: CEPHALEXIN 500 MG CAP PO SCH (13:00)
== END 2017-08-09 14:25 | disposition home or self-care (01) | DRG 339 ==
LOC: E/R 01:44 → PP2 03:56
PROVIDERS: ADMIT Internal Medicine; ATTEND Internal Medicine
PROC: 0DTJ4ZZ Resection of Appendix, Percutaneous Endoscopic Approach (ICD-10-PCS; principal; 2017-08-07 11:00)
DX: K35.3 Acute appendicitis with localized peritonitis (principal); N17.9 Acute kidney failure, unspecified; E10.22 Type 1 diabetes mellitus with diabetic chronic kidney disease; I16.0 Hypertensive urgency; E78.5 Hyperlipidemia, unspecified; I12.9 Hypertensive chronic kidney disease with stage 1 through stage 4 chronic kidney disease, or unspecified chronic kidney disease; N18.9 Chronic kidney disease, unspecified; G25.0 Essential tremor; E66.9 Obesity, unspecified; Z68.31 Body mass index [BMI] 31.0-31.9, adult; Z95.0 Presence of cardiac pacemaker; Z79.4 Long term (current) use of insulin; Z85.51 Personal history of malignant neoplasm of bladder
CPT/HCPCS: 36415; 74176; 80048; 80053; 80061; 81001; 81003; 82962; 83036; 83690; 83735; 84100; 84484; 85025; 85610; 87040; 88304; 93005; 96374; 96375; 97116; 97161; 97530; J0131; J0690; J1100; J1170; J1815; J2270; J2370; J2405; J2543; J2765; J2795; J3010; J7030; J7040; J7042